=== PATIENT | male | born 1965 | race Caucasian/White ===

== ENCOUNTER 2019-04-15 13:59 | Inpatient (IN) | payer MEDICARE, OTHER ==
[2019-04-15] MEDS ORDERED: SODIUM CHLORIDE 0.9% 500 ML 500 ML IV STA ×2 (15:04→16:07)
[2019-04-15] MEDS ORDERED: PANTOPRAZOLE 40 MG/10 ML VIAL IVP STA (15:05)
[2019-04-15 15:35] LABS: ALT 13 U/L (21-72); AST 23 U/L (17-59); African American GFR (CKD) >90 (>60 ml/min/1.73 sqM); Albumin 3.8 g/dL (3.5-5.0); Alkaline Phosphatase 79 U/L (38-126); Anion Gap 7 mmol/L; Blood Urea Nitrogen 16 mg/dL (9-20); Calcium 9.3 mg/dL (8.4-10.2); Carbon Dioxide 33 mmol/L (22-30); Chloride 101 mmol/L (98-107); Glucose 127 mg/dL (74-99); Magnesium 2.1 mg/dL (1.6-2.3); Potassium 4.2 mmol/L (3.5-5.1); Sodium 141 mmol/L (137-145); Total Bilirubin 0.3 mg/dL (0.2-1.3); Total Protein 6.6 g/dL (6.3-8.2)
[2019-04-15 15:36] LABS: Basophils # (A) 0.1 k/uL (0-0.2); Basophils % (A) 1 %; Eosinophils # (A) 0.2 k/uL (0-0.7); Eosinophils % (A) 3 %; HCT 48.7 % (39.0-53.0); HGB 15.7 gm/dL (13.0-17.5); Lymphocytes # (A) 1.7 k/uL (1.0-4.8); Lymphocytes % (A) 24 %; MCH 30.4 pg (25.0-35.0); MCHC 32.2 g/dL (31.0-37.0); MCV 94.5 fL (80.0-100.0); Mean Platelet Volume 8.9; Monocytes # (A) 0.9 k/uL (0-1.0); Monocytes % (A) 13 %; Neutrophils # (A) 4.1 k/uL (1.3-7.7); Neutrophils % (A) 58 %; Platelet Count 415 k/uL (150-450); RBC 5.15 m/uL (4.30-5.90); RDW 14.9 % (11.5-15.5); WBC 7.1 k/uL (3.8-10.6)
[2019-04-15 16:01] LABS: INR 0.9 (<1.2); Partial Thromboplastin Time 23.7 sec (22.0-30.0)
--- NOTE | 2019-04-15 16:05 | CT ---
EXAMINATION TYPE: CT abdomen pelvis w con DATE OF EXAM: 04/15/2019 COMPARISON: NONE HISTORY: 53-year-old male Constipation, bloody stools. TECHNIQUE: Contiguous axial scanning of the abdomen and pelvis following administration of 100 ml Iso shayne 300 IV contrast. Delayed images through the kidneys and coronal/sagittal reconstructions perform ed. CT DLP: 669.6 mGycm Automated exposure control for dose reduction was used. FINDINGS: Heart normal size without pericardial effusion. Multiple calcified granulomas in the visualized lower lungs. Mild patchy nodularity also seen at the left base, axial image 6 along with a 5 mm noncalcified pulmo nary nodule just adjacent, axial image 3. Tiny 5 mm hypodense lesion central liver, axial image 14 too small for accurate CT characterization, likely cyst. Some focal fat along the anterior falciform ligament. No biliary ductal dilatation. Suggestion of some layering calculi in the gallbladder measuring up to 6 mm. No abnormal gallbladder distention. Mild diffuse thickening of the left adrenal gland without discrete nodularity. Right adrenal gland, s pleen with small hilar splenule, pancreas appear within normal limits. Symmetric uptake and excretion of contrast from both kidneys. No dilated small bowel, free fluid, or free air. Normal appendix. There is moderate circumferential wall thickening especially involving the cecum and ascending colon and the sigmoid colon and rectum. Mild circumferential wall thickening of the remain tae of the colon. Bladder partially distended. Prostate gland measures 4.9 cm wide. No abnormal fluid collection in the pelvis or pelvic lymphadenopathy. Paucity of intra-abdominal fat limits assessment for lymphadenopathy. No obvious abdominal lymph node s identified. Bones: Degenerative disc disease greatest at L4-L5 and then at L2-L4. Facet arthropathy mid to lower lumbar spine with trace grade 1 retrolisthesis at L2-L4. IMPRESSION: 1. PANCOLITIS WITH RELATIVELY MODERATE EDEMATOUS INFLAMMATION INVOLVING THE ASCENDING COLON AND SIGMO ID COLON. 2. PATCHY NODULARITY AT THE LEFT BASE COULD REPRESENT DISTAL SMALL AIRWAYS IMPACTION WITH MUCUS OR IN FLAMMATORY DEBRIS. CORRELATE FOR POSSIBLE ASTHMA OR BRONCHIOLITIS. 3. SIX-MONTH FOLLOW-UP CONTRAST ENHANCED CT CHEST RECOMMENDED TO SURVEY THE ENTIRE LUNGS. THERE IS EV IDENCE OF PRIOR GRANULOMATOUS DISEASE BUT WITH A NONCALCIFIED 5 MM PULMONARY NODULE AT THE LEFT BASE WHICH SHOULD BE REASSESSED ON FOLLOW-UP. 4. A COUPLE TINY GALLSTONES.
--- NOTE | 2019-04-15 16:08 | ED ---
General Adult HPI - General Chief complaint: GI Bleed Stated complaint: Constipated Time Seen by Provider: 04/15/19 14:29 Source: patient, RN notes reviewed Mode of arrival: wheelchair Limitations: no limitations - History of Present Illness Initial comments: 53-year-old male with a past medical history of back pain presents to the emergency department for a chief complaint of abdominal pain and possible constipation. Patient states that he has not had a normal bowel movement for over 10 days. States any bowel movement is watery. Patient states he is passing blood in his stool. States it is sometimes bright red but sometimes is in clots. States it has been going on for about 2-3 weeks. Denies ever having this problem before. States he has lost 20 pounds in the past month as well as and he is unsure why is he has been eating.Patient has no other complaints at this time including shortness of breath, chest pain, nausea or vomiting, head ache, or visual changes. - Related Data Home Medications Medication Instructions Recorded Confirmed No Known Home Medications 04/15/19 04/15/19 Allergies Allergy/AdvReac Type Severity Reaction Status Date / Time codeine AdvReac Unknown Verified 04/15/19 14:56 Review of Systems ROS Statement: Those systems with pertinent positive or pertinent negative responses have been documented in the HPI. ROS Other: All systems not noted in ROS Statement are negative. Past Medical History Additional Past Medical History / Comment(s): Back pain History of Any Multi-Drug Resistant Organisms: None Reported Past Surgical History: Back Surgery, Hernia Repair Past Psychological History: No Psychological Hx Reported Smoking Status: Current every day smoker Past Alcohol Use History: None Reported Past Drug Use History: None Reported General Exam Limitations: no limitations General appearance: alert, in no apparent distress Head exam: Present: atraumatic, normocephalic, normal inspection Eye exam: Present: normal appearance, PERRL, EOMI. Absent: scleral icterus, conjunctival injection, periorbital swelling ENT exam: Present: normal exam, mucous membranes moist Neck exam: Present: normal inspection, full ROM. Absent: tenderness, meningismus, lymphadenopathy Respiratory exam: Present: normal lung sounds bilaterally. Absent: respiratory distress, wheezes, rales, rhonchi, stridor Cardiovascular Exam: Present: regular rate, normal rhythm, normal heart sounds. Absent: systolic murmur, diastolic murmur, rubs, gallop, clicks GI/Abdominal exam: Present: soft, tenderness (Minimal generalized abdominal tenderness. No guarding or rebound), normal bowel sounds. Absent: distended, guarding, rebound, rigid Rectal exam: Absent: fecal impaction, hemorrhoids, mass Neurological exam: Present: alert, oriented X3, CN II-XII intact Psychiatric exam: Present: normal affect, normal mood Course Vital Signs 04/15/19 14:21 Temperature 98.4 F Pulse Rate 102 H Respiratory 18 Rate Blood Pressure 140/90 O2 Sat by Pulse 96 Oximetry Medical Decision Making - Medical Decision Making 53-year-old male to the emergency department for multiple complaints including constipation and GI bleed. Patient is passing bright red blood per rectum as well as dark clots. CBC is unremarkable. Hemoglobin is stable. CMP unremarkable as well. Occult blood is positive. No fecal impaction. CT abdomen and pelvis with contrast showed pancolitis with relatively moderate edematous inflammation involving the ascending and sigmoid colon. There are also noted patchy nodularities of the left lung base with recommended 6 month follow-up. However at this time patient will be admitted for rectal bleed. GI will be consulted. - Lab Data Result diagrams: 04/15/19 14:30 04/15/19 14:30 Lab Results 04/15/19 04/15/19 04/15/19 Range/Units 14:30 14:30 14:30 WBC 7.1 (3.8-10.6) k/uL RBC 5.15 (4.30-5.90) m/uL Hgb 15.7 (13.0-17.5) gm/dL Hct 48.7 (39.0-53.0) % MCV 94.5 (80.0-100.0) fL MCH 30.4 (25.0-35.0) pg MCHC 32.2 (31.0-37.0) g/dL RDW 14.9 (11.5-15.5) % Plt Count 415 (150-450) k/uL Neutrophils % 58 % Lymphocytes % 24 % Monocytes % 13 % Eosinophils % 3 % Basophils % 1 % Neutrophils # 4.1 (1.3-7.7) k/uL Lymphocytes # 1.7 (1.0-4.8) k/uL Monocytes # 0.9 (0-1.0) k/uL Eosinophils # 0.2 (0-0.7) k/uL Basophils # 0.1 (0-0.2) k/uL PT (9.0-12.0) sec INR (<1.2) APTT (22.0-30.0) sec Sodium 141 (137-145) mmol/L Potassium 4.2 (3.5-5.1) mmol/L Chloride 101 (98-107) mmol/L Carbon Dioxide 33 H (22-30) mmol/L Anion Gap 7 mmol/L BUN 16 (9-20) mg/dL Creatinine 0.92 (0.66-1.25) mg/dL Est GFR (CKD-EPI)AfAm >90 (>60 ml/min/1.73 sqM) Est GFR (CKD-EPI)NonAf >90 (>60 ml/min/1.73 sqM) Glucose 127 H (74-99) mg/dL Calcium 9.3 (8.4-10.2) mg/dL Magnesium 2.1 (1.6-2.3) mg/dL Total Bilirubin 0.3 (0.2-1.3) mg/dL AST 23 (17-59) U/L ALT 13 L (21-72) U/L Alkaline Phosphatase 79 (38-126) U/L Total Protein 6.6 (6.3-8.2) g/dL Albumin 3.8 (3.5-5.0) g/dL Stool Occult Blood (Negative) Blood Type O Negative Blood Type Confirm Blood Type Recheck No Previous Record Antibody Screen NEGATIVE Spec Expiration Date 04/18/2019232904/15/19 04/15/19 04/15/19 Range/Units 14:30 14:35 16:04 WBC (3.8-10.6) k/uL RBC (4.30-5.90) m/uL Hgb (13.0-17.5) gm/dL Hct (39.0-53.0) % MCV (80.0-100.0) fL MCH (25.0-35.0) pg MCHC (31.0-37.0) g/dL RDW (11.5-15.5) % Plt Count (150-450) k/uL Neutrophils % % Lymphocytes % % Monocytes % % Eosinophils % % Basophils % % Neutrophils # (1.3-7.7) k/uL Lymphocytes # (1.0-4.8) k/uL Monocytes # (0-1.0) k/uL Eosinophils # (0-0.7) k/uL Basophils # (0-0.2) k/uL PT 10.0 (9.0-12.0) sec INR 0.9 (<1.2) APTT 23.7 (22.0-30.0) sec Sodium (137-145) mmol/L Potassium (3.5-5.1) mmol/L Chloride (98-107) mmol/L Carbon Dioxide (22-30) mmol/L Anion Gap mmol/L BUN (9-20) mg/dL Creatinine (0.66-1.25) mg/dL Est GFR (CKD-EPI)AfAm (>60 ml/min/1.73 sqM) Est GFR (CKD-EPI)NonAf (>60 ml/min/1.73 sqM) Glucose (74-99) mg/dL Calcium (8.4-10.2) mg/dL Magnesium (1.6-2.3) mg/dL Total Bilirubin (0.2-1.3) mg/dL AST (17-59) U/L ALT (21-72) U/L Alkaline Phosphatase (38-126) U/L Total Protein (6.3-8.2) g/dL Albumin (3.5-5.0) g/dL Stool Occult Blood Positive (Negative) Blood Type Blood Type Confirm O Negative Blood Type Recheck Antibody Screen Spec Expiration Date Disposition Clinical Impression: Rectal bleeding, Colitis Disposition: ADMITTED IP TO THIS [facility] Condition: Fair Is patient prescribed a controlled substance at d/c from ED?: No Referrals: Sheila Umanzor MD [Primary Care Provider] - 1-2 days Time of Disposition: 16:51
[2019-04-15] MEDS ORDERED: NALOXONE 0.4 MG/ML 1 ML VIAL IV PRN (16:52)
[2019-04-15] MEDS: SODIUM CHLORIDE 0.9% 1,000 ML IV SCH (17:45)
[2019-04-15] MEDS ORDERED: LORazepam 2 MG/ML INJ IV PRN ×3 (20:14)
[2019-04-15] MEDS: NICOTINE 21MG/24HR PATCH TRANSDERM SCH (21:40)
[2019-04-15] MEDS: LEVOFLOXACIN 500MG-D5W PMX 500 MG in DEXTROSE/WATER 1 100ML.BAG IVPB SCH (21:40)
[2019-04-15] MEDS: metroNIDAZOLE-NS PMX 500 MG in SALINE 1 100ML.BAG IVPB SCH (23:57)
[2019-04-16] MEDS: SODIUM CHLORIDE 0.9% 1,000 ML IV SCH ×3 (03:41→20:05)
[2019-04-16] MEDS: metroNIDAZOLE-NS PMX 500 MG in SALINE 1 100ML.BAG IVPB SCH ×2 (07:45→15:59)
[2019-04-16] MEDS: PANTOPRAZOLE 40 MG/10 ML VIAL IVP SCH (07:45)
[2019-04-16] MEDS: NICOTINE 21MG/24HR PATCH TRANSDERM SCH (07:45)
[2019-04-16] MEDS ORDERED: THIAMINE 100 MG TAB PO SCH (09:00)
[2019-04-16 10:09] LABS: Basophils % (A) 1 %; Eosinophils # (A) 0.2 k/uL (0-0.7); Eosinophils % (A) 4 %; HCT 43.4 % (39.0-53.0); HGB 14.2 gm/dL (13.0-17.5); Lymphocytes # (A) 1.2 k/uL (1.0-4.8); Lymphocytes % (A) 22 %; MCH 31.1 pg (25.0-35.0); MCHC 32.7 g/dL (31.0-37.0); MCV 94.9 fL (80.0-100.0); Mean Platelet Volume 7.3; Monocytes # (A) 0.6 k/uL (0-1.0); Monocytes % (A) 12 %; Neutrophils # (A) 3.3 k/uL (1.3-7.7); Neutrophils % (A) 59 %; Platelet Count 379 k/uL (150-450); RBC 4.58 m/uL (4.30-5.90); RDW 14.2 % (11.5-15.5); WBC 5.6 k/uL (3.8-10.6)
[2019-04-16 10:38] LABS: ALT 19 U/L (21-72); AST 19 U/L (17-59); African American GFR (CKD) >90 (>60 ml/min/1.73 sqM); Albumin 2.8 g/dL (3.5-5.0); Alkaline Phosphatase 67 U/L (38-126); Anion Gap 4 mmol/L; Blood Urea Nitrogen 7 mg/dL (9-20); Calcium 8.7 mg/dL (8.4-10.2); Carbon Dioxide 29 mmol/L (22-30); Chloride 107 mmol/L (98-107); Glucose 89 mg/dL (74-99); Potassium 4.1 mmol/L (3.5-5.1); Sodium 140 mmol/L (137-145); Total Bilirubin 0.4 mg/dL (0.2-1.3); Total Protein 5.4 g/dL (6.3-8.2)
[2019-04-16] MEDS ORDERED: IPRATROPIUM-ALBUTEROL 3 ML NEB INHALATION PRN (11:53)
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
[2019-04-16] MEDS: FOLIC ACID 1 MG TAB PO SCH (12:25)
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
[2019-04-16] MEDS: IPRATROPIUM-ALBUTEROL 3 ML NEB INHALATION SCH ×3 (13:28→19:24)
[2019-04-16 14:23] VITALS: BMI 22.4
[2019-04-16 15:21] VITALS: RESP 16
[2019-04-16] MEDS: methylPREDNISolone SOD SUCCI 40 MG/ML 1 ML VIAL IV SCH (15:59)
[2019-04-16] MEDS: LEVOFLOXACIN 500MG-D5W PMX 500 MG in DEXTROSE/WATER 1 100ML.BAG IVPB SCH (20:05)
[2019-04-17] MEDS: SODIUM CHLORIDE 0.9% 1,000 ML IV SCH ×3 (06:09→16:43)
[2019-04-17] MEDS: methylPREDNISolone SOD SUCCI 40 MG/ML 1 ML VIAL IV SCH ×4 (06:09→23:06)
[2019-04-17] MEDS: metroNIDAZOLE-NS PMX 500 MG in SALINE 1 100ML.BAG IVPB SCH ×4 (06:09→23:06)
[2019-04-17] MEDS: IPRATROPIUM-ALBUTEROL 3 ML NEB INHALATION SCH ×4 (07:07→21:28)
[2019-04-17] MEDS: NICOTINE 21MG/24HR PATCH TRANSDERM SCH (08:12)
[2019-04-17] MEDS: THIAMINE 100 MG TAB PO SCH (08:13)
[2019-04-17] MEDS: FOLIC ACID 1 MG TAB PO SCH (08:13)
[2019-04-17] MEDS: PANTOPRAZOLE 40 MG/10 ML VIAL IVP SCH (08:13)
[2019-04-17 09:47] LABS: Basophils % (A) 0 %; Eosinophils % (A) 0 %; HCT 43.3 % (39.0-53.0); HGB 13.8 gm/dL (13.0-17.5); Lymphocytes # (A) 0.8 k/uL (1.0-4.8); Lymphocytes % (A) 11 %; MCH 30.8 pg (25.0-35.0); MCHC 31.9 g/dL (31.0-37.0); MCV 96.4 fL (80.0-100.0); Mean Platelet Volume 8.1; Monocytes # (A) 0.6 k/uL (0-1.0); Monocytes % (A) 9 %; Neutrophils # (A) 5.8 k/uL (1.3-7.7); Neutrophils % (A) 78 %; Platelet Count 374 k/uL (150-450); RDW 15.1 % (11.5-15.5); WBC 7.4 k/uL (3.8-10.6)
[2019-04-17 09:55] LABS: ALT 11 U/L (21-72); AST 16 U/L (17-59); African American GFR (CKD) >90 (>60 ml/min/1.73 sqM); Albumin 3.1 g/dL (3.5-5.0); Alkaline Phosphatase 79 U/L (38-126); Anion Gap 7 mmol/L; Blood Urea Nitrogen 9 mg/dL (9-20); C Reactive Protein 8.7 mg/L (<10.0); Calcium 8.9 mg/dL (8.4-10.2); Carbon Dioxide 28 mmol/L (22-30); Chloride 106 mmol/L (98-107); Glucose 175 mg/dL (74-99); Potassium 4.7 mmol/L (3.5-5.1); Sodium 141 mmol/L (137-145); Total Bilirubin 0.2 mg/dL (0.2-1.3); Total Protein 5.7 g/dL (6.3-8.2)
--- NOTE | 2019-04-17 10:13 | P.PN ---
Subjective Progress Note Date: 04/17/19 This is a 53-year-old male, patient of Dr. Umanzor. He has a known past medical history of chronic back pain, nicotine dependence and alcohol abuse. Patient presents to the emergency room with complaints of crampy abdominal pain. Symptoms are mostly in the lower abdomen. He's come planning that he has not had a normal bowel movement in about 10 days. He's had some constipation issues as well as watery stools. He is also reporting blood in his stools. He's had symptoms off and on for the last 2-3 weeks. He's noticed about a 20 pound weight loss the last month. He's had decrease in appetite. Patient had a computed tomography scan of the abdomen and pelvis completed on admission. Results showed pancolitis with relatively moderate edematous inflammation involving the ascending colon and sigmoid colon. Also noted a patchy nodularity at the left base of the lung that could represent distal small airway impaction with mucous or inflammatory debris's. Correlate for asthma or bronchitis b ronchiolitis. 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 Also noted a couple tiny gallstones. Patient started on IV Levaquin and Flagyl. GI services on consult. He is currently nothing by mouth. He is stating now that he is hungry. Patient does report that he has been moving around a lot his had and he has been drinking more than usual. He is drinking about 3-4 a call at the beverages a day since he is moved in with the cousin. He denies any chest pain, shortness of breath, fever chills or sweats. Did have some vomiting which resolved a couple days ago. Denies any burning with urination. He had a temp of 99 on admission hemoglobin 15.7 stool for C. diff was negative stool for occult blood was positive. On 04/17/2019 patient is alert and oriented 3. Patient reports improvement with abdominal discomfort. Patient reports he still having loose stools but has subsided slightly. Patient denies any nausea or vomiting. Patient started on IV Solu-Medrol per GI services. Patient remains on Flagyl and Levaquin. Patient tolerating liquid diet. Patient denies any chest pain or shortness of breath. Patient denies nausea or vomiting. Patient denies any urinary burning or frequency Objective - Vital Signs Vital signs: Vital Signs Temp 97.9 F 04/17/19 05:05 Pulse 86 04/17/19 05:05 Resp 16 04/17/19 05:05 BP 124/83 04/17/19 05:05 Pulse Ox 96 04/17/19 05:05 Intake & Output 04/16/19 04/17/19 04/17/19 18:59 06:59 18:59 Intake Total 50 940 Output Total 300 400 Balance -250 540 Weight 74.843 kg Intake: Intake, IV Titration 460 Amount Levofloxacin 500Mg-D5w 100 Pmx 500 mg In Dextrose/ Water 1 100ml.bag @ 100 mls/hr IVPB Q24H [facility] Rx#: [id number] Sodium Chloride 0.9% 1, 360 000 ml @ 120 mls/hr IV . Q8H20M MIKE Rx#:[id number] Oral 50 480 Output: Urine 300 400 Other: Voiding Method Toilet Toilet Urinal # Voids 4 # Bowel Movements 4 - Exam Head normocephalic Neck supple Lungs wheezing noted on the right Heart regular rate and rhythm S1-S2, no rub or gallop Abdomen is soft lower abdominal tenderness nondistended positive bowel sounds no hepatosplenomegaly Extremities no edema Neuro alert and orientated to 3 - Labs CBC & Chem 7: 04/17/19 08:41 04/17/19 08:41 Labs: Abnormal Lab Results - Last 24 Hours (Table) 04/16/19 04/16/19 04/16/19 Range/Units 09:22 09:22 14:00 Lymphocytes # (1.0-4.8) k/uL BUN 7 L (9-20) mg/dL Glucose (74-99) mg/dL AST (17-59) U/L ALT 19 L (21-72) U/L C-Reactive Protein 11.1 H (<10.0) mg/L Total Protein 5.4 L (6.3-8.2) g/dL Albumin 2.8 L (3.5-5.0) g/dL Stool Lactoferrin POSITIVE H (NEGATIVE) 04/17/19 04/17/19 Range/Units 08:41 08:41 Lymphocytes # 0.8 L (1.0-4.8) k/uL BUN (9-20) mg/dL Glucose 175 H (74-99) mg/dL AST 16 L (17-59) U/L ALT 11 L (21-72) U/L C-Reactive Protein (<10.0) mg/L Total Protein 5.7 L (6.3-8.2) g/dL Albumin 3.1 L (3.5-5.0) g/dL Stool Lactoferrin (NEGATIVE) Microbiology - Last 24 Hours (Table) 04/16/19 14:00 Stool Culture - Preliminary Stool Assessment and Plan Assessment: 1. Abdominal pain: Likely secondary to pancolitis. CT scan showing evidence of pancolitis with relatively moderate edematous inflammation involving the ascending colon and sigmoid colon. GI service is on consult. Continue with IV fluids. Continue IV IV Levaquin and Flagyl. Patient is currently nothing by mouth. Stool for C. diff is negative. Continue IV Protonix. Patient started on IV Solu-Medrol per GI services. Patient having low-grade temps 99.9 last night 2. Rectal bleeding: Continue to monitor hemoglobin. Likely secondary to patient's colitis. Stool for occult blood is positive. Hemoglobin history. From 15.7-14.2. Last colonoscopy about 5 years ago per patient. He does report having polyps removed at that time. Patient will be evaluated by GI service. 3. Severe protein calorie malnutrition: Albumin 2.8. When diet is advanced will start ensure shakes 4. Alcohol abuse: Patient currently on the CIWA protocol with Ativan. Continue thiamine, folic acid and multivitamin 5. Nicotine dependence: Discussed smoking cessation for greater than 3 minutes. Continue nicotine patch. 6. Patient having wheezing with computed tomography scan of the chest noting Patchy nodularity at the left base of the lung that could represent distal small airway impaction with mucous or inflammatory debris's. Correlate for possible asthma or bronchiolitis. We'll start DuoNeb updrafts 4 times a day and as n eeded and monitor 7. A noncalcified 5 mm pulmonary nodule also noted the left lung base. Would recommend a CT scan of the chest in 6 months. Pulmonary services have been consulted GI prophylaxis Protonix. DVT prophylaxis SCDs I performed an examination of the patient and discussed their management with the Nurse Practitioner. I have reviewed the Nurse Practitioner's notes and agree with the documented findings and plan of care
--- NOTE | 2019-04-17 11:02 | CONS ---
CONSULTATION PULMONARY/CRITICAL CARE CONSULTATION: DATE OF CONSULTATION: 04/17/2019 This is a 53-year-old gentleman who presented to the emergency room on April 15, and was seen by Dr. Berumen. He came in because of back pain as well as abdominal pain, constipation, and possible GI bleed. He apparently has not been having normal bowel movements over the previous 10 days prior to admission to the emergency room. His bowel movements have been watery. There was also blood in his stool. Sometimes the blood was bright red and sometimes clots were noted. Again, it had been going on for at least 10 days and maybe even a bit longer. He has apparently lost 20 pounds as well. He has not been eating, his appetite has been poor. Anyway, he did not come in for any respiratory issues, but apparently on a CT scan of the abdomen and pelvis that was done on April 15, it was noted that he had patchy nodularity at the left lung base, which could represent a either inflammatory disease, asthma or bronchiolitis. A 6-month followup was recommended and a full CT scan of the chest was recommended given his smoking history. There was also a 5 mm pulmonary nodule at the left lung base, which should be reassessed as well. The patient is a long-term smoker. He had been smoked for many years and smoking up to the time of his admission here. His primary care physician is Dr. Umanzor in [place], but he admits to not having seen the patient for some time. He does have a very coarse/hoarse voice. He relates to a previous episode of cervical fusion. He likely also has underlying COPD. MEDICATIONS: His home medications are none. ALLERGIES: CODEINE. PAST MEDICAL HISTORY: His past medical history includes chronic back pain and probable COPD. SURGICAL HISTORY: His surgical history includes hernia repair, back surgery and cervical fusion. SOCIAL HISTORY: Social history is positive for ongoing tobacco use. Denies any illicit drug use or alcohol use. OCCUPATIONAL HISTORY: He is currently not working. FAMILY HISTORY: Unremarkable. He states that his parents were both relatively healthy. No major medical problems in either. REVIEW OF SYSTEMS: CONSTITUTIONAL: Negative except for decreased appetite and weight loss of about 20 pounds. NEUROLOGIC: Negative. HEENT: Negative. CARDIOVASCULAR: Negative. PULMONARY: Negative. GI: Diarrhea, GI bleed, abdominal pain. : Negative. RHEUMATOLOGIC: Negative. IMMUNOLOGIC: Negative. ENDOCRINOLOGIC: Negative. DERMATOLOGIC: Negative. PHYSICAL EXAMINATION: VITAL SIGNS: Current vital signs are reviewed. Temperature 97.9, heart rate 86, respiratory rate 16, blood pressure 124/83, mean 96, room air saturation 96%. Appears in no acute distress. HEENT: Examination is grossly unremarkable. Mucous membranes are moist. No oral lesions. NECK: Supple. Full range of motion. No adenopathy or thyromegaly. Neck veins are flat. CARDIOVASCULAR: Examination reveals regular rhythm and rate. Heart rate 80 beats per minute. S1, S2 normal. LUNGS: Reveal a few scattered rhonchi. There is no wheezes or crackles. I suspect underlying COPD. Breath sounds equal bilaterally. Slight prolongation is noted. ABDOMEN: Soft. Bowel sounds are heard. EXTREMITIES: Are intact. No cyanosis, clubbing, or edema. SKIN: Without rash. NEUROLOGIC: Examination is brief but nonfocal. LABS: Labs are reviewed. White count 7.4, hemoglobin 13.8, hematocrit 43.3, platelet count 374,000. Sodium, potassium, chloride and CO2 all normal. Anion gap normal. BUN and creatinine were 9 and 0.82. The rest of the labs look pretty good. C. diff was negative. Albumin 3.1. X-rays reviewed. ASSESSMENT: 1. Abdominal pain with gastrointestinal bleed, currently being evaluated by GI and the primary service. 2. History of ongoing tobacco use and nicotine dependence. 3. Probable chronic obstructive pulmonary disease. 4. Mild abnormalities noted on CT scan of the abdomen and pelvis in the lung bases, primarily left-sided, which will need further evaluation. PLAN: The patient is counseled about the importance of smoking cessation. We gave him a card. We will see the patient in the office afterwards. We need to do a complete pulmonary function test on the patient. He will need a dedicated CT scan of the chest. Followup will be necessary on this gentleman. He is certainly at high risk. Additional recommendations and suggestions are forthcoming. A card was left with the patient. MMODL / IJN: [id number] /
--- NOTE | 2019-04-17 11:07 | P.PN ---
Subjective Progress Note Date: 04/17/19 Principal diagnosis: Abdominal pain and rectal bleeding history of ulcerative colitis 53-year-old male history of EtOH abuse admitted with acute abdominal pain rectal bleeding history of ulcerative colitis. Reports improvement in rectal bleeding abdominal pain. Tolerating full liquids requesting advancement. Afebrile. CRP 11. Hemoglobin 13.8. White count 7.4. Stool lactoferrin positive. C. diff negative. Objective - Vital Signs Vital signs: Vital Signs Temp 97.9 F 04/17/19 05:05 Pulse 86 04/17/19 05:05 Resp 16 04/17/19 05:05 BP 124/83 04/17/19 05:05 Pulse Ox 96 04/17/19 05:05 Intake & Output 04/16/19 04/17/19 04/17/19 18:59 06:59 18:59 Intake Total 50 940 Output Total 300 400 Balance -250 540 Weight 74.843 kg Intake: Intake, IV Titration 460 Amount Levofloxacin 500Mg-D5w 100 Pmx 500 mg In Dextrose/ Water 1 100ml.bag @ 100 mls/hr IVPB Q24H [facility] Rx#: [id number] Sodium Chloride 0.9% 1, 360 000 ml @ 120 mls/hr IV . Q8H20M [facility] Rx#:[id number] Oral 50 480 Output: Urine 300 400 Other: Voiding Method Toilet Toilet Urinal # Voids 4 # Bowel Movements 4 - Exam General appearance: The patient is alert, oriented, in no acute distress. HET: Head is normocephalic and atraumatic. Pupils are equal and reactive. Oropharynx is clear without lesions. Neck: Supple without lymphadenopathy. Trachea midline. Heart: S1 S2. Regular rate and rhythm. Lungs: No crackles or wheezes are heard. Abdomen: Soft, mild tenderness to the bilateral lower abdomen, nondistended with bowel sounds. No peritoneal signs. No palpable organomegaly or masses. Extremities: Normal skin color and turgor. No cyanosis, rash, ulceration, clubbing, or edema. Radial and pedal pulses are 2/4 bilaterally. Neurological: No focal deficits. Strength and sensation are grossly intact. - Labs CBC & Chem 7: 04/18/19 09:41 04/18/19 09:41 Labs: Abnormal Lab Results - Last 24 Hours (Table) 04/16/19 04/16/1904/17/19 Range/Units 09:22 14:00 08:41 Lymphocytes # 0.8 L (1.0-4.8) k/uL Glucose (74-99) mg/dL AST (17-59) U/L ALT (21-72) U/L C-Reactive Protein 11.1 H (<10.0) mg/L Total Protein (6.3-8.2) g/dL Albumin (3.5-5.0) g/dL Stool Lactoferrin POSITIVE H (NEGATIVE) 04/17/19 Range/Units 08:41 Lymphocytes # (1.0-4.8) k/uL Glucose 175 H (74-99) mg/dL AST 16 L (17-59) U/L ALT 11 L (21-72) U/L C-Reactive Protein (<10.0) mg/L Total Protein 5.7 L (6.3-8.2) g/dL Albumin 3.1 L (3.5-5.0) g/dL Stool Lactoferrin (NEGATIVE) Microbiology - Last 24 Hours (Table) 04/16/19 14:00 Stool Culture - Preliminary Stool Assessment and Plan (1) Exacerbation of ulcerative colitis Narrative/Plan: 53-year-old male with a history of ulcerative colitis diagnosed about 5 years ago status post colonoscopy previously maintained on oral therapy discontinued 2 years ago secondary to "remission" presents with a 2 week history of persistent lower abdominal pain and bright red blood per rectum passing multiple blood tinged bowel movements daily. CT reported pancolitis with edematous inflammation involving the descending and sigmoid colon most likely secondary to exacerbation of ulcerative colitis. Colonoscopy report reviewed from GI office performed 10/01/[address] Crisostomo findings were diffuse colitis probably representing ulcerative colitis. Te rminal ileum not involved. Colonic biopsies consistent with active colitis with features of chronicity negative for dysplasia. Current Visit: Yes Status: Acute Code(s): K51.90 - ULCERATIVE COLITIS, UNSPECIFIED, WITHOUT COMPLICATIONS SNOMED Code(s): 129250152 (2) Rectal bleeding Current Visit: Yes Status: Acute Code(s): K62.5 - HEMORRHAGE OF ANUS AND RECTUM SNOMED Code(s): 70438586 (3) History of ETOH abuse Current Visit: Yes Status: Acute Code(s): F10.11 - ALCOHOL ABUSE, IN REMISSION SNOMED Code(s): 299115811 Plan: 1. Low residue diet if tolerated may discharge. Prednisone 40 mg daily decrease by 5 mg every 7 days prescription provided. Return to office in 3-4 weeks for reevaluation. Outpatient colonoscopy discussed. Thank you for this kind referral and the opportunity to participate in the care of your patient. This consultation was discussed with Dr. Luevano. The impression and plan of care have been directed as dictated.
[2019-04-17] MEDS: LEVOFLOXACIN 500MG-D5W PMX 500 MG in DEXTROSE/WATER 1 100ML.BAG IVPB SCH (19:47)
[2019-04-18] MEDS: SODIUM CHLORIDE 0.9% 1,000 ML IV SCH ×2 (04:25→12:52)
[2019-04-18 05:30] VITALS: BP 123/76; PULSE 88; TEMP 97.8
[2019-04-18] MEDS: IPRATROPIUM-ALBUTEROL 3 ML NEB INHALATION SCH ×2 (08:19→12:01)
[2019-04-18] MEDS: THIAMINE 100 MG TAB PO SCH (08:23)
[2019-04-18] MEDS: PANTOPRAZOLE 40 MG/10 ML VIAL IVP SCH (08:24)
[2019-04-18] MEDS: FOLIC ACID 1 MG TAB PO SCH (08:24)
[2019-04-18] MEDS: methylPREDNISolone SOD SUCCI 40 MG/ML 1 ML VIAL IV SCH (08:24)
[2019-04-18] MEDS: NICOTINE 21MG/24HR PATCH TRANSDERM SCH (08:25)
[2019-04-18] MEDS: metroNIDAZOLE-NS PMX 500 MG in SALINE 1 100ML.BAG IVPB SCH (08:28)
[2019-04-18 09:58] LABS: Basophils % (A) 0 %; Eosinophils % (A) 1 %; HCT 42.7 % (39.0-53.0); HGB 13.5 gm/dL (13.0-17.5); Lymphocytes # (A) 1.2 k/uL (1.0-4.8); Lymphocytes % (A) 14 %; MCH 30.1 pg (25.0-35.0); MCHC 31.6 g/dL (31.0-37.0); MCV 95.3 fL (80.0-100.0); Mean Platelet Volume 7.6; Monocytes # (A) 0.8 k/uL (0-1.0); Monocytes % (A) 10 %; Neutrophils # (A) 6.3 k/uL (1.3-7.7); Neutrophils % (A) 74 %; Platelet Count 378 k/uL (150-450); RBC 4.48 m/uL (4.30-5.90); RDW 15.3 % (11.5-15.5); WBC 8.5 k/uL (3.8-10.6)
[2019-04-18 10:20] LABS: ALT 15 U/L (21-72); AST 13 U/L (17-59); African American GFR (CKD) >90 (>60 ml/min/1.73 sqM); Alkaline Phosphatase 75 U/L (38-126); Anion Gap 5 mmol/L; Blood Urea Nitrogen 16 mg/dL (9-20); C Reactive Protein 5.2 mg/L (<10.0); Carbon Dioxide 29 mmol/L (22-30); Chloride 106 mmol/L (98-107); Glucose 130 mg/dL (74-99); Potassium 4.1 mmol/L (3.5-5.1); Sodium 140 mmol/L (137-145); Total Bilirubin 0.1 mg/dL (0.2-1.3); Total Protein 5.6 g/dL (6.3-8.2)
--- NOTE | 2019-04-18 14:23 | P.DS ---
Providers Date of admission: 04/17/19 15:40 Expected date of discharge: 04/18/19 Attending physician: Allan Loredo Consults: 04/16/19 13:02 Consult Physician Routine Consulting Provider: Leonel Varela Consult Reason/Comments: patchy nodularity on left lung base on CT scan Do you want consulting provider notified?: Yes Primary care physician: Sheila Umanzor Hospital Course: Discharge diagnosis 1. Abdominal pain: Likely secondary to exacerbation of ulcerative colitis. Patient was treated with IV steroids and will go home with a prednisone taper. He'll follow up with GI service outpatient. Patient was diagnosed with ulcerative colitis about 5 years ago status post colonoscopy. Previously maintained on oral therapy that was discontinued 2 years ago secondary to "re mission". Computed tomography scan and findings of the pancolitis likely secondary to patient's ulcerative colitis. Per GI service no antibiotics are needed at discharge. Stool for C. diff is negative. 2. Rectal bleeding: Secondary to patient's ulcerative colitis. Hemoglobin 13.5 at discharge 3. Severe protein calorie malnutrition: Albumin 2.8. When diet is advanced will start ensure shakes 4. Alcohol abuse: Patient had been placed on CIWA protocol with Ativan. Continue thiamine, folic acid and multivitamin. Patient did not require Ativan during hospitalization. 5. Nicotine dependence: Discussed smoking cessation for greater than 3 minutes. Continue nicotine patch. 6. Patient having wheezing with computed tomography scan of the chest noting Patchy nodularity at the left base of the lung that could represent distal small airway impaction with mucous or inflammatory debris's. Correlate for possible asthma or bronchiolitis. Patient given DuoNeb updrafts during his hospitalization. Patient seen by pulmonary service during hospitalization. Patient follow-up with pulmonary service outpatient 7. A noncalcified 5 mm pulmonary nodule also noted the left lung base. Would recommend a CT scan of the chest in 6 months. Patient follow-up with pulmonary service outpatient Hospital course This is a 53-year-old male, patient of Dr. Umanzor. He has a known past medical history of chronic back pain, nicotine dependence and alcohol abuse. Patient presents to the emergency room with complaints of crampy abdominal pain. Symptoms are mostly in the lower abdomen. He's come planning that he has not had a normal bowel movement in about 10 days. He's had some constipation issues as well as watery stools. He is also reporting blood in his stools. He's had symptoms off and on for the last 2-3 weeks. He's noticed about a 20 pound weight loss the last month. He's had decrease in appetite. Patient had a computed tomography scan of the abdomen and pelvis completed on admission. Results showed pancolitis with relatively moderate edematous inflammation involving the ascending colon and sigmoid colon. Also noted a patchy nodularity at the left base of the lung that could represent distal small airway impaction with mucous or inflammatory debris's. Correlate for asthma or bronchitis bronchiolitis. 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 Also noted a couple tiny gallstones. Patient started on IV Levaquin and Flagyl. GI services on consult. He is currently nothing by mouth. He is stating now that he is hungry. Patient does report that he has been moving around a lot his had and he has been drinking more than usual. He is drinking about 3-4 a call at the beverages a day since he is moved in with the cousin. He denies any chest pain, shortness of breath, fever chills or sweats. Did have some vomiting which resolved a couple days ago. Denies any burning with urination. He had a temp of 99 on admission hemoglobin 15.7 stool for C. diff was negative stool for occult blood was positive. On 04/17/2019 patient is alert and oriented 3. Patient reports improvement with abdominal discomfort. Patient reports he still having loose stools but has subsided slightly. Patient denies any nausea or vomiting. Patient started on IV Solu-Medrol per GI services. Patient remains on Flagyl and Levaquin. Patient tolerating liquid diet. Patient denies any chest pain or shortness of breath. Patient denies nausea or vomiting. Patient denies any urinary burning or frequency 04/18/2019 patient was treated for ulcerative colitis. Started on IV steroids per GI service. Abdominal pain has resolved. He is no longer having blood in his stools. He tolerated advancement of diet to a low fiber diet. GI service has cleared him for discharge and have given patient prescription for a prednisone taper. Patient is to follow up with GI service outpatient. Regarding the abnormal findings on computed tomography scan of the abdomen regarding his lungs. Pulmonary service is recommending to follow-up outpatient for a computed tomography scan of the chest as well as a pulmonary function testing. Computed tomography scan of the chest was not completed during admission due to patient having IV and oral contrast given in the abdominal CAT scan. Kidney functions are stable. Will patient follow-up with Dr. Umanzor, Dr. Galvan and Dr. Varela in 1 week. I performed an examination of the patient and discussed their management with the physician Patient Services Coordinator. I have reviewed the Physician Patient Services Coordinator's notes and agree with the documented findings and plan of care Patient Condition at Discharge: Stable Plan - Discharge Summary Discharge Rx Participant: Yes New Discharge Prescriptions: New predniSONE 10 mg PO DIRECTED #123 tab Nicotine 21Mg/24Hr Patch [Habitrol] 1 patch TRANSDERM DAILY #30 patch Discharge Medication List predniSONE 10 mg PO DIRECTED #123 tab 04/17/19 [Rx] Nicotine 21Mg/24Hr Patch [Habitrol] 1 patch TRANSDERM DAILY #30 patch 04/18/19 [Rx] Follow up Appointment(s)/Referral(s): Julio C Crisostomo MD [STAFF PHYSICIAN] - 3 Weeks Leonel Varela DO [Doctor of Osteopathic Medicine] - 1 Week Sheila Umanzor MD [Primary Care Provider] - 1 Week Patient Instructions/Handouts: Rectal Bleeding (DC) Activity/Diet/Wound Care/Special Instructions: Indigent From placed in chart, please send to [facility] pharmacy when d/c meds are in, wants d/c Rx. Diet: low fiber Activity: as tolerated Discharge Disposition: HOME SELF-CARE
== END 2019-04-18 14:45 | disposition home or self-care (01) | DRG 385 ==
LOC: EC 13:59 → 4MS4W 17:28 → OBSVTOIN 04-17 15:40
PROVIDERS: ADMIT Internal Medicine; ATTEND Internal Medicine
DX: K51.811 Other ulcerative colitis with rectal bleeding (principal); E43 Unspecified severe protein-calorie malnutrition; J44.9 Chronic obstructive pulmonary disease, unspecified; K80.20 Calculus of gallbladder without cholecystitis without obstruction; G89.29 Other chronic pain; M54.9 Dorsalgia, unspecified; R91.1 Solitary pulmonary nodule; K59.00 Constipation, unspecified; F10.10 Alcohol abuse, uncomplicated; F17.210 Nicotine dependence, cigarettes, uncomplicated; Z71.6 Tobacco abuse counseling; Z87.81 Personal history of (healed) traumatic fracture; Z98.1 Arthrodesis status; Z98.890 Other specified postprocedural states; Z71.3 Dietary counseling and surveillance; Z88.5 Allergy status to narcotic agent; Z83.2 Family history of diseases of the blood and blood-forming organs and certain disorders involving the immune mechanism; Z82.5 Family history of asthma and other chronic lower respiratory diseases; Z83.3 Family history of diabetes mellitus; Z81.8 Family history of other mental and behavioral disorders; Z84.1 Family history of disorders of kidney and ureter; Z82.49 Family history of ischemic heart disease and other diseases of the circulatory system; Z68.22 Body mass index [BMI] 22.0-22.9, adult
CPT/HCPCS: 36415; 74177; 80053; 82272; 83630; 83735; 85025; 85610; 85730; 86140; 86850; 86900; 86901; 87045; 87046; 87324; 94640; 96361; 96374; 99285